=== PATIENT | female | born 1960 | race Caucasian/White ===

== ENCOUNTER 2019-05-27 06:21 | Day surgery (SDC) | payer OTHER, BC ==
[2019-05-27] MEDS ORDERED: CEFAZOLIN 2 GM/50 ML (PMX) 50 ML IVPB (08:00)
[2019-05-27 08:25] LABS: ADD MAN DIFF? NO
[2019-05-27 08:28] LABS: WHITE BLOOD COUNT 8.5 10^3/ul (4.8-10.8)
[2019-05-27 08:28] LABS: BASOPHILS % 0.4 % (0.0-2.0); EOSINOPHILS # 0.1 10^3/ul (0.0-0.5); EOSINOPHILS % 1.1 % (0.0-7.0); HEMATOCRIT 42.5 % (37.0-47.0); HEMOGLOBIN 13.6 g/dl (12.0-16.0); LYMPHOCYTES # 1.5 10^3/ul (0.8-2.9); LYMPHOCYTES % 17.1 % (15.0-51.0); MEAN CORPUSCULAR HEMOGLOBIN 28.4 pg (29.0-33.0); MEAN CORPUSCULAR VOLUME 88.7 fl (82.0-101.0); MONOCYTE # 0.5 10^3/ul (0.3-0.9); MONOCYTES % 5.4 % (0.0-11.0); NEUTROPHIL # 6.4 10^3/ul (1.6-7.5); NEUTROPHILS % 75.6 % (39.0-77.0); PLATELET COUNT 204 10^3/UL (140-415); RED BLOOD COUNT 4.79 10^6/ul (4.20-5.40); RED CELL DISTRIBUTION WIDTH 14.3 % (11.5-14.5)
[2019-05-27] MEDS: SOD CHLORIDE 0.9% 1,000 ML IV (08:37)
[2019-05-27 08:46] LABS: INR 0.93; PARTIAL THROMBOPLASTIN TIME 31.9 Sec (23.0-35.0); PROTIME 12.6 Sec (11.9-14.9)
[2019-05-27 08:54] LABS: ALANINE AMINOTRANSFERASE 16 IU/L (13-69); ALBUMIN 3.6 g/dl (3.3-4.9); ALBUMIN/GLOBULIN RATIO 0.94; ANION GAP 9 (5-13); ASPARTATE AMINO TRANSFERASE 24 IU/L (15-46); BILIRUBIN,INDIRECT 0.6 mg/dl (0-1.1); BILIRUBIN,TOTAL 0.6 mg/dl (0.2-1.3); BLOOD UREA NITROGEN 11 mg/dl (7-20); CALCIUM 8.8 mg/dl (8.4-10.2); CARBON DIOXIDE 26 mmol/L (21-31); CHLORIDE 110 mmol/L (97-110); CREATININE 0.59 mg/dl (0.44-1.00); Estimated GFR > 60 mL/min (>60); GLUCOSE 106 mg/dl (70-220); POTASSIUM 3.6 mmol/L (3.5-5.1); TOTAL PROTEIN 7.4 g/dl (6.1-8.1)
[2019-05-27 09:00] LABS: ALKALINE PHOSPHATASE 131 IU/L (42-121); SODIUM 145 mmol/L (135-144)
[2019-05-27] MEDS ORDERED: LIDOCAINE 2% (SDV) 5 ML INJ (10:29)
[2019-05-27] MEDS ORDERED: PROPOFOL 20 ML (10:29)
[2019-05-27] MEDS ORDERED: ROCURONIUM 50 MG INJ (10:29)
[2019-05-27] MEDS ORDERED: GLYCOPYRROLATE 0.4 MG INJ (10:29)
[2019-05-27] MEDS ORDERED: NEOSTIGMINE 3 MG/3 ML SYRINGE (10:29)
[2019-05-27] MEDS ORDERED: SUCCINYLCHOLINE CHLORIDE 100 MG/5 ML SYG IV (10:29)
[2019-05-27] MEDS ORDERED: CEFAZOLIN 1 GM INJ (10:33)
[2019-05-27] MEDS ORDERED: ONDANSETRON 4 MG INJ ×2 (10:33→11:44)
[2019-05-27] MEDS ORDERED: METOCLOPRAMIDE 10 MG INJ (10:33)
[2019-05-27] MEDS ORDERED: MEPERIDINE 100 MG INJ (10:34)
[2019-05-27] MEDS ORDERED: hydrALAzine 20 MG INJ ×2 (11:21→11:44)
[2019-05-27] MEDS ORDERED: HYDROmorphONE 1 MG/5 ML IV SYRINGE IV ×2 (11:30→11:43)
[2019-05-27] MEDS ORDERED: DIPHENHYDRAMINE 50 MG INJ IV (11:30)
[2019-05-27] MEDS ORDERED: LABETALOL HCL 20MG INJ IV (11:30)
[2019-05-27] MEDS ORDERED: MIDAZOLAM 1 MG/ML 2 ML INJ IV (11:30)
[2019-05-27] MEDS ORDERED: FENTAnyl 50 MCG/ML VIAL IV ×3 (11:30)
[2019-05-27] MEDS ORDERED: EPHEDrine 25 MG/5 ML SYG IV (11:30)
[2019-05-27] MEDS ORDERED: METOCLOPRAMIDE 10 MG INJ IV (11:30)
[2019-05-27] MEDS ORDERED: OXYCODONE/ACETAMINOPHEN (5/325) TAB PO ×2 (11:30)
[2019-05-27] MEDS: BUPIVACAINE 0.25% (MPF) 30 ML INJ (11:43)
[2019-05-27] MEDS ORDERED: MEPERIDINE 25 MG INJ (11:44)
[2019-05-27] MEDS: HYDROmorphONE 1 MG/5 ML IV SYRINGE IV ×2 (11:56→12:04)
[2019-05-27] MEDS: MEPERIDINE 25 MG INJ IV (11:58)
[2019-05-27] MEDS: ONDANSETRON 4 MG INJ IV (11:58)
[2019-05-27] MEDS: hydrALAzine 20 MG INJ IV (12:05)
[2019-05-27] MEDS: HYDROCODONE/APAP (5/325) TAB PO (12:47)
== END 2019-05-27 13:14 | disposition home or self-care (01) ==
LOC: SDS 06:21
DX: K80.10 Calculus of gallbladder with chronic cholecystitis without obstruction (principal); I10 Essential (primary) hypertension
CPT/HCPCS: 47562; 71045; 80053; 85025; 85610; 85730; 88304